=== PATIENT | female | born 1940 | race Caucasian/White ===

== ENCOUNTER 2019-05-25 11:20 | Emergency (ER) | payer MEDICARE, BC ==
[~2019-05-25 11:20] MED LIST: Sodium Chloride 0.9% 1,000 ML ONE; Sodium Chloride 0.9% 500 ML IV SCH
[2019-05-25] MEDS ORDERED: DOBUTamine/Dextrose 5%-Water 250 MG/250 ML BAG ONE (11:55)
[2019-05-25 12:00] LABS: CHLORIDE,CL 101 mEq/L (98-106); SODIUM,NA 141 mEq/L (136-145)
[2019-05-25] MEDS ORDERED: cefTRIAXone 1 GM Vial ONE (12:03)
[2019-05-25] MEDS: DOBUTamine/Dextrose 5%-Water 250 MG/250 ML BAG IV SCH ×3 (12:22→12:34)
[2019-05-25] MEDS ORDERED: Sodium Chloride 0.9% 500 ML IV SCH (12:30)
[2019-05-25] MEDS ORDERED: cefTRIAXone 1 GM Vial IVPUSH ONE (12:50)
--- NOTE | 2019-05-25 15:52 | EDM.PDOC ---
ED HPI GENERAL MEDICAL PROBLEM - General Chief Complaint: Neuro Symptoms/Deficits Stated Complaint: STROKE Time Seen by Provider: 05/25/19 11:20 Source of Information: Reports: EMS, Family History Limitations: Reports: Altered Mental Status - History of Present Illness INITIAL COMMENTS - FREE TEXT/NARRATIVE: Alejandra is an 78 yo female who presents to the ED via [facility] after called 911 to an unresponsive female. EMS were called yesterday as well and upon arrival Alejandra was lethargic but alert and apparently declined being transferred to the ED. She denied any discomfort, chest pain, shortness of breath to EMS staff. As patient was alert and orientated they were unable to transfer per patient wishes. Son who is also present states he was able to get her to drink some water last night but she wanted to stay in her chair. This morning her admits she was still resting in her chair and appeared to be unresponsive. He called EMS. Upon EMS arrival they state her eyes were open but she was not responding. She was hypotensive and incontinent. Onset Date: 05/24/19 Duration: Getting Worse Location: Reports: Generalized - Related Data Allergies Allergy/AdvReac Type Severity Reaction Status Date / Time aspirin AdvReac Rash Verified 05/25/19 12:54 Ffnwnag-Gzr-Pih Reductase AdvReac Rash Verified 05/25/19 12:54 Inhibitor Home Meds: Home Meds Losartan [Cozaar] 50 mg PO DAILY 09/25/14 [History] SitaGLIPtin [Januvia] 100 mg PO DAILY 09/25/14 [History] glipiZIDE [Glipizide Xl] 10 mg PO BID 09/25/14 [History] metFORMIN [Glucophage] 850 mg PO TIDM 09/25/14 [History] Simvastatin [Zocor] 20 mg PO BEDTIME 09/02/16 [History] Gemfibrozil [Lopid] 600 mg PO DAILY 05/25/19 [History] Past Medical History - Past Surgical History Other HEENT Surgeries/Procedures: Pt unresponsive Social & Family History - Family History Family Medical History: Noncontributory - Tobacco Use Smoking Status *Q: Unknown Ever Smoked - Recreational Drug Use Other Recreational Drug Type: unknown ED ROS GENERAL - Review of Systems Review Of Systems: Unable To Obtain - Physical Exam Exam: See Below Exam Limited By: Altered Mental Status General Appearance: Obtunded, Mild Distress Eye Exam: Bilateral Eye: PERRL Ears: Normal External Exam, Normal Canal, Normal TMs Nose: Normal Inspection, Normal Mucosa, No Blood. No: Nasal Flaring Throat/Mouth: No Airway Compromise, Other (dry oral mucosa). No: Evidence of Tongue Biting Head Exam: Atraumatic, Normocephalic Neck: Normal Inspection, Supple Respiratory/Chest: Lungs Clear, Normal Breath Sounds, No Accessory Muscle Use, Other (increased respiratory rate) Cardiovascular: Regular Rate, Rhythm, No Murmur, Other (nonpalpable radial or pedal pulses, palpable femoral pulses) GI/Abdominal: Normal Bowel Sounds, Soft, No Organomegaly, No Abnormal Bruit, No Mass Neuro Exam (Abbreviated): Unresponsive. No: Alert, Oriented Extremities: Pedal Edema, Slow Capillary Refill, Mottled, Pallor Skin Exam: Cyanosis, Mottled, Pallor EKG INTERPRETATION EKG Date: 05/25/19 Rhythm: NSR Rate (Beats/Min): 99 ST-T: Elevated Comparison: NA - No Prior EKG Course - Vital Signs Last Recorded V/S: Last Vital Signs Temp 98.5 F 05/25/19 11:20 Pulse 100 05/25/19 11:40 Resp 34 H 05/25/19 11:30 BP 65/35 L 05/25/19 11:40 Pulse Ox 92 L 05/25/19 11:40 - Orders/Labs/Meds Orders: Active Orders 24 hr Category Date Time Status Head wo Cont [CT] Routine Exams 05/25/19 Taken CULTURE BLOOD [BC] Routine Lab 05/25/19 12:38 Received CULTURE BLOOD [BC] Routine Lab 05/25/19 12:38 Received CULTURE URINE [RM] Routine Lab 05/25/19 11:52 Received EKG 12 Lead [EK] Routine Ther 05/25/19 Ordered Labs: Laboratory Tests 05/25/19 05/25/19 05/25/19 Range/Units 11:29 11:29 11:29 WBC 18.5 H (5.0-10.0) 10^3/uL RBC 4.62 (4.00-5.50) 10^6/uL Hgb 13.8 (12.0-16.0) g/dL Hct 42.0 (37.0-47.0) % MCV 90.9 (82.0-94.0) fL MCH 29.9 (27.0-32.0) pg MCHC 32.9 L (33.0-38.0) g/dL RDW Coeff of Carl 14.3 (11.0-15.0) % Plt Count 212 (150-400) 10^3/uL Add Manual Diff Yes Neutrophils % (Manual) 70 (35-85) % Band Neutrophils % 18 H (0-5) % Lymphocytes % (Manual) 5 L (21-55) % Monocytes % (Manual) 4 (2-12) % Metamyelocytes % 3 % Vacuolated Monocytes 1+ slight H (NOT SEEN) Toxic Granulation 2+ moderate H (NOT SEEN) PT 9.0 L (9.7-12.3) SEC INR 0.87 L (0.92-1.18) APTT 29.4 (23.2-32.3) SEC Sodium 141 (136-145) mEq/L Potassium 4.5 (3.5-5.0) mEq/L Chloride 101 (98-106) mEq/L Carbon Dioxide 11 L D (21-32) mmol/L BUN 84 H* D (7-18) mg/dL Creatinine 3.4 H* D (0.6-1.0) mg/dL Est Cr Clr Drug Dosing TNP Estimated GFR (MDRD) 13 L (>=60) mL/min Glucose 343 H* D (75-99) mg/dL Lactic Acid (0.4-2.0) mmol/L Calcium 10.3 H (8.4-10.1) mg/dL Lactate Dehydrogenase 413 H (100-190) U/L Creatine Kinase 2964 H (21-215) U/L Troponin I 1.181 H (0.00-0.06) ng/mL Urine Color (YELLOW) Urine Appearance (CLEAR) Urine pH (4.5-8.0) Ur Specific [place] (1.003-1.020) Urine Protein (NEGATIVE) mg/dL Urine Glucose (UA) (NEGATIVE) mg/dL Urine Ketones (NEGATIVE) mg/dL Urine Occult Blood (NEGATIVE) Urine Nitrite (NEGATIVE) Urine Bilirubin (NEGATIVE) Urine Urobilinogen (0.2-1.0) EU/dL Ur Leukocyte Esterase (NEGATIVE) Urine RBC (0-5) /HPF Urine WBC (0-5) /HPF Amorphous Sediment (NOT SEEN) /HPF Urine Bacteria (NOT SEEN) /HPF Granular Casts (NOT SEEN) /LPF Urinalysis Comment 05/25/19 05/25/19 Range/Units 11:29 11:29 WBC (5.0-10.0) 10^3/uL RBC (4.00-5.50) 10^6/uL Hgb (12.0-16.0) g/dL Hct (37.0-47.0) % MCV (82.0-94.0) fL MCH (27.0-32.0) pg MCHC (33.0-38.0) g/dL RDW Coeff of Carl (11.0-15.0) % Plt Count (150-400) 10^3/uL Add Manual Diff Neutrophils % (Manual) (35-85) % Band Neutrophils % (0-5) % Lymphocytes % (Manual) (21-55) % Monocytes % (Manual) (2-12) % Metamyelocytes % % Vacuolated Monocytes (NOT SEEN) Toxic Granulation (NOT SEEN) PT (9.7-12.3) SEC INR (0.92-1.18) APTT (23.2-32.3) SEC Sodium (136-145) mEq/L Potassium (3.5-5.0) mEq/L Chloride (98-106) mEq/L Carbon Dioxide (21-32) mmol/L BUN (7-18) mg/dL Creatinine (0.6-1.0) mg/dL Est Cr Clr Drug Dosing Estimated GFR (MDRD) (>=60) mL/min Glucose (75-99) mg/dL Lactic Acid 3.4 H (0.4-2.0) mmol/L Calcium (8.4-10.1) mg/dL Lactate Dehydrogenase (100-190) U/L Creatine Kinase (21-215) U/L Troponin I (0.00-0.06) ng/mL Urine Color Yellow (YELLOW) Urine Appearance Clear (CLEAR) Urine pH 6.0 (4.5-8.0) Ur Specific [place] >= 1.030 H (1.003-1.020) Urine Protein 100 H (NEGATIVE) mg/dL Urine Glucose (UA) >=1000 H (NEGATIVE) mg/dL Urine Ketones 15 H (NEGATIVE) mg/dL Urine Occult Blood Large H (NEGATIVE) Urine Nitrite Negative (NEGATIVE) Urine Bilirubin Small H (NEGATIVE) Urine Urobilinogen 0.2 (0.2-1.0) EU/dL Ur Leukocyte Esterase Negative (NEGATIVE) Urine RBC 5-10 H (0-5) /HPF Urine WBC 5-10 H (0-5) /HPF Amorphous Sediment Moderate H (NOT SEEN) /HPF Urine Bacteria Moderate H (NOT SEEN) /HPF Granular Casts Occasional H (NOT SEEN) /LPF Urinalysis Comment Meds: Medications Discontinued Medications Generic Name Dose Route Start Last Admin Trade Name Freq PRN Reason Stop Dose Admin Ceftriaxone Sodium Confirm 05/25/19 12:03 Rocephin Administered 05/25/19 12:04 Dose 1 gm .ROUTE .STK-MED ONE Sodium Chloride Confirm 05/25/19 11:11 Normal Saline Administered 05/25/19 11:12 Dose 1,000 mls @ as directed .ROUTE .STK-MED ONE Dobutamine HCl/Dextrose Confirm 05/25/19 11:55 Dobutamine In D5w 250 Mg/250 Ml Administered 05/25/19 11:56 Dose 250 mg in 250 mls @ as directed .ROUTE .STK-MED ONE Departure - Departure Time of Disposition: 14:06 Disposition: 20 Preliminary Cause of *Q: Sepsis & Multi System Organ Failure Condition: Critical Clinical Impression: Palliative care patient, Sepsis with multi-organ dysfunction - Discharge Information - Problem List & Annotations (1) Palliative care patient SNOMED Code(s): 919033982 Code(s): Z51.5 - ENCOUNTER FOR PALLIATIVE CARE Status: Acute Current Visit: Yes (2) Sepsis with multi-organ dysfunction SNOMED Code(s): 17343575 Code(s): A41.9 - SEPSIS, UNSPECIFIED ORGANISM; R65.20 - SEVERE SEPSIS WITHOUT SEPTIC SHOCK Status: Acute Current Visit: Yes - My Orders Last 24 Hours: My Active Orders 05/25/19 Head wo Cont [CT] Routine EKG 12 Lead [EK] Routine 05/25/19 11:52 CULTURE URINE [RM] Routine 05/25/19 12:38 CULTURE BLOOD [BC] Routine CULTURE BLOOD [BC] Routine - Assessment/Plan Last 24 Hours: My Active Orders 05/25/19 Head wo Cont [CT] Routine EKG 12 Lead [EK] Routine 05/25/19 11:52 CULTURE URINE [RM] Routine 05/25/19 12:38 CULTURE BLOOD [BC] Routine CULTURE BLOOD [BC] Routine Plan: Alejandra presented unresponsive to the ED via EMS. Per EMS and her spouse it appears as she has been unresponsive since yesterday evening. Labs immediately drawn did show an elevated WBC, lactic acid, creatinine, BUN, Troponin and CK levels. EKG did show ST elevation in leads V5-V6. Patient was hypotensive and dopamine drip was started without any improvement of blood pressure, patient remained hypotensive. IV fluids were initiated upon arrival. I consulted with , sister, son and daughter in regards to Alejandra's care. I did discuss her critical status and whether they wished for further treatment in a larger facility. is POA and didn't feel it was appropriate to transfer to higher level of care as was likely imminent. Entire family verbalized understanding and agreed with comfort cares. 1 gram of Rocephin was given with concerns of sepsis secondary to UTI. We were unable to obtain ABG's. Alejandra was resting comfortably with family at her side and at 1406 today.
[2019-05-25 15:55] VITALS: BP 56/30; PULSE 102
== END 2019-05-25 16:30 | disposition expired ==
LOC: CC.ED 11:20 → UNDOADMOB 13:52 → CC.MS 13:52 → CC.ED 14:09
DX: A41.9 Sepsis, unspecified organism (principal); R65.20 Severe sepsis without septic shock; Z51.5 Encounter for palliative care; Z88.6 Allergy status to analgesic agent; Z88.8 Allergy status to other drugs, medicaments and biological substances; Z79.899 Other long term (current) drug therapy; Z79.84 Long term (current) use of oral hypoglycemic drugs
CPT/HCPCS: 36415; 51702; 70450; 80048; 81001; 82550; 83605; 83615; 84484; 85025; 85610; 85730; 87040; 87086; 93005; 96361; 96374; 96375; 99284; 99285-25; J0696; J1250; J7040